=== PATIENT | female | born 1945 ===

== ENCOUNTER 2018-02-13 11:41 | Emergency (ER) | payer MEDICARE ==
[2018-02-13 11:52] VITALS: BMI 24.3
[2018-02-13 11:53] VITALS: BP 125/78; PULSE 66; RESP 17; TEMP 97.7; O2SAT 96
[2018-02-13 13:02] LABS: BASO # 0.1 K/uL (0.0-0.2); BASO % 1.5 % (0.0-2.0); EOS # 0.6 K/uL (0.0-0.7); EOS % 8.7 % (0.0-4.0); HEMOGLOBIN 12.7 g/dL (12.0-16.0); LYMPH # 2.2 K/uL (1.0-4.3); LYMPH % 33.9 % (20.0-40.0); MEAN CELL VOLUME 90.7 fl (81.0-99.0); MEAN CORPUSCULAR HEMOGLOBIN 30.8 pg (27.0-31.0); MEAN PLATELET VOLUME 7.6 fl (7.2-11.7); MONO # 0.6 K/uL (0.0-0.8); MONO % 9.8 % (0.0-10.0); NEUT % 46.1 % (50.0-75.0); RBC 4.12 Mil/uL (3.80-5.20); WHITE BLOOD COUNT 6.5 K/uL (4.8-10.8)
--- NOTE | 2018-02-13 13:09 | ED PDOC ---
HPI: Headache Time Seen by Provider: 02/13/18 11:55 Chief Complaint (Nursing): Headache Chief Complaint (Provider): Headache History Per: Patient History/Exam Limitations: no limitations Onset/Duration Of Symptoms: Days (x3) Current Symptoms Are (Timing): Still Present Additional Complaint(s): 72 year old female presents to the ED for a gradual onset, atraumatic headache for the past three days. She notes the pain resolves temporarily after taking Tylenol or Motrin, but eventually comes back. Patient reports that she has been checking her blood pressure at the local pharmacy for the past couple days and her highest reading was 131/93, despite taking her Telmisartan and HCTZ. Currently, she states her headache is minimal. Otherwise, denies history of headache, head injury, fever, nausea, vomiting, chest pain, shortness of breath, numbness, tingling, and weakness. PMD: George Jefferson Past Medical History Reviewed: Historical Data, Nursing Documentation, Vital Signs Vital Signs: Last Vital Signs Temp 97.7 F 02/13/18 11:53 Pulse 66 02/13/18 11:53 Resp 17 02/13/18 11:53 BP 125/78 02/13/18 11:53 Pulse Ox 96 02/13/18 11:53 - Medical History PMH: HTN Denies: Chronic Kidney Disease - Surgical History Surgical History: No Surg Hx - Family History Family History: States: Unknown Family Hx - Social History Current smoker - smoking cessation education provided: No Alcohol: None Drugs: Denies - Home Medications Home Medications: Ambulatory Orders Medication Instructions Recorded Amoxicillin/Clavulanate [Augmentin 1 tab PO BID #20 tab 02/13/18 500 MG-125 MG] - Allergies Allergies/Adverse Reactions: Allergies Allergy/AdvReac Type Severity Reaction Status Date / Time No Known Allergies Allergy Verified 02/13/18 12:36 Review of Systems ROS Statement: Except As Marked, All Systems Reviewed And Found Negative Constitutional: Negative for: Fever Cardiovascular: Negative for: Chest Pain Respiratory: Negative for: Shortness of Breath Gastrointestinal: Negative for: Nausea, Vomiting Neurological: Positive for: Headache (bitemporal, gradual onset). Negative for: Weakness, Numbness, Other (tingling) Physical Exam - Reviewed Nursing Documentation Reviewed: Yes Vital Signs Reviewed: Yes - Physical Exam Appears: Positive for: No Acute Distress Head Exam: Positive for: ATRAUMATIC, NORMAL INSPECTION, NORMOCEPHALIC Skin: Positive for: Normal Color. Negative for: Rash Eye Exam: Positive for: Normal appearance, EOMI, PERRL ENT: Positive for: Normal ENT Inspection Neck: Positive for: Normal, Painless ROM, Supple Cardiovascular/Chest: Positive for: Regular Rate, Rhythm Respiratory: Positive for: Normal Breath Sounds. Negative for: Respiratory Distress Gastrointestinal/Abdominal: Positive for: Normal Exam, Soft. Negative for: Tenderness Back: Positive for: Normal Inspection Extremity: Positive for: Normal ROM Neurologic/Psych: Positive for: Alert, Oriented (x3). Negative for: Motor/Sensory Deficits - Laboratory Results Result Diagrams: 02/13/18 12:49 02/13/18 12:49 - ECG O2 Sat by Pulse Oximetry: 96 (RA) Pulse Ox Interpretation: Normal Medical Decision Making Medical Decision Making: Time: 123 Initial Impression: headache Initial Plan: --CT head without contrast --EKG --CMP --CBC with differential 1400 CT Head FINDINGS: HEMORRHAGE: No intracranial hemorrhage. BRAIN: No mass effect or edema. Minimal cerebral atrophy or chronic microvascular ischemic changes. VENTRICLES: Unremarkable. No hydrocephalus. CALVARIUM: Unremarkable. PARANASAL SINUSES: Left and smaller right sphenoid sinus inflammatory changes with small fluid level here seen MASTOID AIR CELLS: Unremarkable as visualized. No inflammatory changes. OTHER FINDINGS: None. IMPRESSION: Sphenoid sinusitis -can result in vertex headaches. Correlate clinically. Minimal cerebral atrophy. No intracranial hemorrhage or mass effect. On re-evaluation, pt. reports no headache while in ED. Informed of results. Advised to f/u with PMD but is to return to ED immediately if symptoms worsen. Scribe Attestation: Documented by Brigida Fischer, acting as a scribe for Vincent Butts PA-C Provider Scribe Attestation: All medical record entries made by the Scribe were at my direction and personally dictated by me. I have reviewed the chart and agree that the record accurately reflects my personal performance of the history, physical exam, medical decision making, and the department course for this patient. I have also personally directed, reviewed, and agree with the discharge instructions and disposition. Disposition - Clinical Impression Clinical Impression: Sinusitis - Patient ED Disposition Is Patient to be Admitted: No - Disposition Referrals: [facility] [place] [Outside] Disposition: Routine/Home Disposition Time: 14:41 Condition: IMPROVED Additional Instructions: FOLLOW UP WITH DR. JEFFERSON FOR FURTHER EVALUATION RETURN TO ED IMMEDIATELY IF SYMPTOMS WORSEN DAVID MONTGOMERY, thank you for letting us take care of you today. Your provider was Yessenia Taylor MD and you were treated for HEADACHE. The emergency medical care you received today was directed at your acute symptoms. If you were prescribed any medication, please fill it and take as directed. It may take several days for your symptoms to resolve. Return to the Emergency Department if your symptoms worsen, do not improve, or if you have any other problems. Please contact your doctor or call one of the physicians/clinics you have been referred to that are listed on the Patient Visit Information form that is included in your discharge packet. Bring any paperwork you were given at discharge with you along with any medications you are taking to your follow up visit. Our treatment cannot replace ongoing medical care by a primary care provider outside of the emergency department. Thank you for allowing the [facility] team to be part of your care today. If you had an X-Ray or CT scan: A Radiologist will review the ED reading if any change in treatment is needed we will contact you. If you had a blood, urine, or wound culture: It will take several days for the results, if any change in treatment is needed we will contact you. If you had an STI test: It will take 48 hours for the results. Please call after 1 week if you have not heard back. Prescriptions: Amoxicillin/Clavulanate [Augmentin 500 MG-125 MG] 1 tab PO BID #20 tab Instructions: Sinusitis, Adult (DC) Forms: [facility] (Polish) Print Language: SAO TOMEAN
[2018-02-13 13:16] LABS: ALB/GLOB RATIO 1.3 (1.0-2.1); ALBUMIN 4.2 g/dL (3.5-5.0); ALT/SGPT 30 U/L (9-52); AST/SGOT 32 U/L (14-36); BLOOD UREA NITROGEN 20 mg/dl (7-17); CALCIUM 9.1 mg/dL (8.4-10.2); GFR NON-AFRICAN AMERICAN > 60
[2018-02-13] MEDS: Potassium Chloride 20 mEq ER Tab PO ONE (13:31)
[2018-02-13] MEDS ORDERED: Potassium Chloride 20 mEq ER Tab PO ONE (13:31)
--- NOTE | 2018-02-13 14:04 | CT ---
Date of service: 02/13/2018 PROCEDURE: CT HEAD WITHOUT CONTRAST. HISTORY: headache COMPARISON: None available. TECHNIQUE: Axial computed tomography images were obtained through the head/brain without intravenous contrast. Radiation dose: Total exam DLP = 763.53 mGy-cm. This CT exam was performed using one or more of the following dose reduction techniques: Automated exposure control, adjustment of the mA and/or kV according to patient size, and/or use of iterative reconstruction technique. FINDINGS: HEMORRHAGE: No intracranial hemorrhage. BRAIN: No mass effect or edema. Minimal cerebral atrophy or chronic microvascular ischemic changes. VENTRICLES: Unremarkable. No hydrocephalus. CALVARIUM: . Unremarkable. PARANASAL SINUSES: Left and smaller right sphenoid sinus inflammatory changes with small fluid level here seen MASTOID AIR CELLS: Unremarkable as visualized. No inflammatory changes. OTHER FINDINGS: None. IMPRESSION: Sphenoid sinusitis -can result in vertex headaches. Correlate clinically. Minimal cerebral atrophy. No intracranial hemorrhage or mass effect.
--- NOTE | 2018-02-13 19:30 | CARD ---
APPROVED REPORT Date of service: 02/13/2018 EKG Measurement Heart [id number] <Conclusion> Sinus bradycardia Otherwise normal ECG
== END 2018-02-13 14:50 | disposition home or self-care (01) ==
LOC: H.ER 11:41
DX: J01.90 Acute sinusitis, unspecified (principal); I10 Essential (primary) hypertension

== ENCOUNTER 2018-03-05 09:28 | Emergency (ER) | payer MEDICARE ==
[2018-03-05 09:31] VITALS: BMI 26.8
[2018-03-05 09:32] VITALS: RESP 18; O2SAT 99
[2018-03-05] MEDS ORDERED: Oxycodone/Acetaminophen 5/325 mg Tab PO ONE (12:00)
--- NOTE | 2018-03-05 12:21 | ED PDOC ---
HPI: Trauma/Fall - HPI Time Seen by Provider: 03/05/18 09:44 Chief Complaint (Nursing): Trauma Chief Complaint (Provider): Trauma History Per: Patient History/Exam Limitations: no limitations Additional Complaint(s): David Montgomery is a 72 year old female with a past medical history of Hypertension and hernia repair, who presents to the emergency department with pain to her right arm, onset x1 day ago. Patient states that she slipped on the floor yesterday but did not fall to the ground. She states she grabbed onto the side of the bed and ended up twisting her right hand. Patient reports that she has difficulty moving her wrist. She states she applied ice and took ibuprofen. Patient denies any other injuries. PMD: George Jefferson Past Medical History Reviewed: Historical Data, Nursing Documentation, Vital Signs Vital Signs: Last Vital Signs Temp 98.2 F 03/05/18 09:31 Pulse 66 03/05/18 09:31 Resp 18 03/05/18 09:31 BP 146/81 03/05/18 09:31 Pulse Ox 99 03/05/18 09:31 - Medical History PMH: HTN Denies: Chronic Kidney Disease - Surgical History Surgical History: Hernia Repair - Family History Family History: States: Unknown Family Hx - Home Medications Home Medications: Ambulatory Orders Medication Instructions Recorded Amoxicillin/Clavulanate [Augmentin 1 tab PO BID #20 tab 02/13/18 500 MG-125 MG] Ibuprofen [Motrin] 600 mg PO TID #15 tab 03/05/18 oxyCODONE/Acetaminophen [Percocet 1 ea PO Q6 PRN #15 tab 03/05/18 5/325 mg Tab] - Allergies Allergies/Adverse Reactions: Allergies Allergy/AdvReac Type Severity Reaction Status Date / Time No Known Allergies Allergy Verified 02/13/18 12:36 Review of Systems ROS Statement: Except As Marked, All Systems Reviewed And Found Negative Musculoskeletal: Positive for: Hand Pain (wrist pain) Physical Exam - Reviewed Nursing Documentation Reviewed: Yes Vital Signs Reviewed: Yes - Physical Exam Appears: Positive for: Non-toxic, No Acute Distress Head Exam: Positive for: ATRAUMATIC, NORMOCEPHALIC Skin: Positive for: Normal Color Eye Exam: Positive for: EOMI Respiratory: Negative for: Respiratory Distress Pulses-Radial (L): 3+/4+ Pulses-Radial (R): 3+/4+ Extremity: Positive for: Tenderness (right wrist; (-) snuff box tenderness), Capillary Refill (less than 2 seconds), Swelling (right wrist). Negative for: Normal ROM (limited ROM in right wrist ), Deformity, Other (ecchymosis of right wrist) Neurologic/Psych: Positive for: Alert, Oriented - ECG O2 Sat by Pulse Oximetry: 99 (RA) Pulse Ox Interpretation: Normal Medical Decision Making Medical Decision Making: Time: 10:13 Impression: Right wrist forearm injury, rule out fracture or dislocation Plan: --Right wrist xray 3 views --Right forearm x-ray X-ray shows a nondisplaced distal radial fracture a bit unclear so a CT was ordered. 1200 --CT right upper extremity without contrast --Percocet [address] FINDINGS: There is a comminuted mildly impacted transverse distal radial fracture. There is intra-articular extension of the fracture at its most dorsal ulnar aspect. There is minimal dorsal displacement of the distal fragment. There is a comminuted displaced ulnar styloid process fracture. No other fracture is identified. The radiocarpal articulation is preserved. Please note that the pisiform is slightly remote from its normal relationship along the palmar aspect of the triquetrum. There is questionable edema seen in the soft tissues dorsal and proximal to the triquetrum. The possibility of a ligamentous disruption must be considered. There is no evidence of avulsion fracture involving the pisiform. IMPRESSION: Comminuted intra-articular distal radial fracture with mild impaction. Comminuted displaced ulnar styloid process fracture. Question raised of possible disruption of ligament securing the pisiform minutes normal situation. Correlate with clinical examination. If clinically warranted consider further evaluation with magnetic resonance imaging. [address] Aldana who recommends volar splint and follow up with him in the office this week. 1415 Volar splint applied by Kaseya Scribe Attestation: Documented by Gamal Asencio, acting as a scribe for Tonia Mahajan MD. Provider Scribe Attestation: All medical record entries made by the Scribe were at my direction and personally dictated by me. I have reviewed the chart and agree that the record accurately reflects my personal performance of the history, physical exam, medical decision making, and the department course for this patient. I have also personally directed, reviewed, and agree with the discharge instructions and disposition. Procedures - Time-Out Type of Procedure: Splint application Site of Procedure: right arm Correct Patient (with visual ID + MR# on ID Band): Yes Correct Procedure: Yes Correct Site Marked: Yes - Splinting Location: Right forearm Hand-Made Type: fiberglass Splint: volar Pre-Proc Neuro Vasc Exam: normal Post-Proc Neuro Vasc Exam: normal Disposition - Clinical Impression Clinical Impression: Fracture of distal forearm - Patient ED Disposition Is Patient to be Admitted: No Doctor Will See Patient In The: Office Counseled Patient/Family Regarding: Studies Performed, Diagnosis, Need For Followup - Disposition Referrals: Michael Aldana MD [Medical Doctor] - Disposition: Routine/Home Disposition Time: 14:15 Condition: GOOD Additional Instructions: DAVID MONTGOMERY, thank you for letting us take care of you today. Your provider was Tonia Mahajan MD and you were treated for FALL. The emergency medical care you received today was directed at your acute symptoms. If you were prescribed any medication, please fill it and take as directed. It may take several days for your symptoms to resolve. Return to the Emergency Department if your symptoms worsen, do not improve, or if you have any other problems. Please contact your doctor or call one of the physicians/clinics you have been referred to that are listed on the Patient Visit Information form that is included in your discharge packet. Bring any paperwork you were given at discharge with you along with any medications you are taking to your follow up visit. Our treatment cannot replace ongoing medical care by a primary care provider outside of the emergency department. Thank you for allowing the [facility] team to be part of your care today. If you had an X-Ray or CT scan: A Radiologist will review the ED reading if any change in treatment is needed we will contact you. If you had a blood, urine, or wound culture: It will take several days for the results, if any change in treatment is needed we will contact you. If you had an STI test: It will take 48 hours for the results. Please call after 1 week if you have not heard back. Prescriptions: Ibuprofen [Motrin] 600 mg PO TID #15 tab oxyCODONE/Acetaminophen [Percocet 5/325 mg Tab] 1 ea PO Q6 PRN #15 tab PRN Reason: Pain, Severe (8-10) Instructions: Forearm Fracture (DC)
--- NOTE | 2018-03-05 14:06 | RAD ---
PROCEDURE: Radiographs of the Right Forearm HISTORY: right arm pain twisted COMPARISON: None available. TECHNIQUE: Frontal and lateral views obtained. FINDINGS: BONES: There is an impacted fracture of the distal right radius without angulation of the major distal fracture fragment. The ulnar styloid appears fracture as well. Remainder of the right forearm is unremarkable in terms of bony anatomy. JOINT SPACES: No subluxation or dislocation appreciated. Limited soft tissue edema is seen at the wrist soft tissues and distal forearm soft tissues particularly on the volar side. OTHER FINDINGS: None. IMPRESSION: Distal radial and ulnar fractures as discussed above. Remainder of the right radius and ulna are intact otherwise. Soft tissue edema seen the distal forearm and wrist soft tissues at the volar greater than dorsal sides.
--- NOTE | 2018-03-05 14:07 | CT ---
Date of service: 03/05/2018 PROCEDURE: CT right wrist HISTORY: right wrist pain injury COMPARISON: Not available TECHNIQUE: 2.5 mm contiguous axial sections were acquired through the right wrist. Sagittal and coronal images were reformatted from the axial scan. FINDINGS: There is a comminuted mildly impacted transverse distal radial fracture. There is intra-articular extension of the fracture at its most dorsal ulnar aspect. There is minimal dorsal displacement of the distal fragment. There is a comminuted displaced ulnar styloid process fracture. No other fracture is identified. The radiocarpal articulation is preserved. Please note that the pisiform is slightly remote from its normal relationship along the palmar aspect of the triquetrum. There is questionable edema seen in the soft tissues dorsal and proximal to the triquetrum. The possibility of a ligamentous disruption must be considered. There is no evidence of avulsion fracture involving the pisiform. IMPRESSION: Comminuted intra-articular distal radial fracture with mild impaction. Comminuted displaced ulnar styloid process fracture. Question raised of possible disruption of ligament securing the pisiform minutes normal situation. Correlate with clinical examination. If clinically warranted consider further evaluation with magnetic resonance imaging.
--- NOTE | 2018-03-05 14:08 | RAD ---
Date of service: 03/05/2018 PROCEDURE: Right Wrist Radiographs. HISTORY: right hand pain twisted COMPARISON: None. FINDINGS: BONES: Impacted distal radial fracture may be comminuted. Articular involvement is not excluded. Borderline dorsal angulation of the major distal radial fracture fragments suggests Colles type fracture. Ulnar styloid fracture nondisplaced. No definite carpal bone fracture appreciate including the navicular bone. Degenerative changes are present at the navicular trapezium and trapezius articulations, appearing relatively advanced. JOINTS: No subluxation or dislocation. SOFT TISSUES: Circumferential soft tissue edema is seen related to the distal forearm and right wrist greater than volar than dorsal sides. No retained radiodense foreign body or emphysema soft tissue changes related. OTHER FINDINGS: None. IMPRESSION: Colles fracture distal radius with ulnar styloid fracture also present. Limited local soft tissue edema greater than volar than dorsal wrist and distal forearm distributions. Degenerative changes as discussed above.
[2018-03-05 16:48] VITALS: BP 138/76; PULSE 80; TEMP 98.4
== END 2018-03-05 15:40 | disposition home or self-care (01) ==
LOC: H.ER 09:28
DX: S52.501A Unspecified fracture of the lower end of right radius, initial encounter for closed fracture (principal); W19.XXXA Unspecified fall, initial encounter; Y92.89 Other specified places as the place of occurrence of the external cause; I10 Essential (primary) hypertension